=== PATIENT | female | born 2000 | race Caucasian/White ===

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

== ENCOUNTER 2022-03-25 01:23 | Emergency (ER) | payer BC ==
[2022-03-25 01:39] VITALS: RESP 16
[2022-03-25] MEDS ORDERED: LIDOCAINE 1% INJ 10MG/ML (5 ML VIAL-PF) SQ STA (05:18)
[2022-03-25] MEDS ORDERED: IBUPROFEN 600 MG TAB PO STA (05:18)
[2022-03-25] MEDS ORDERED: HYDROcodone/APAP 5-325MG 1 EACH TAB PO STA (05:18)
[2022-03-25] MEDS ORDERED: ACET/COD 300 MG/30 MG STARTER PACK 6 TAB BTL PO STA (07:23)
--- NOTE | 2022-03-25 07:23 | ED ---
Skin/Abscess/FB HPI - General Chief complaint: Skin/Abscess/Foreign Body Stated complaint: RT arm infection Time Seen by Provider: 03/25/22 04:18 Source: patient Mode of arrival: ambulatory Limitations: no limitations - History of Present Illness Initial comments: Patient is 21-year-old woman presenting with complaint of right axillary abscess. She has history of previous MRSA infection. She did require having an abscess drained previously. Patient began having swelling and tenderness few days ago and then was started on clindamycin by her primary physician but is not having any improvement and believes that the swelling has increased and there is more pain. She has not had systemic symptoms, no fever or chills, chest pain, tachycardia or dyspnea. MD complaint: abscess/boil -: days(s) Tetanus Up to Date: yes Location: RUE Consistency: constant Improves with: none Worsens with: none Context: none Associated symptoms: denies other symptoms Treatments Prior to Arrival: none - Related Data Previous Rx's Medication Instructions Recorded Dicyclomine [Bentyl] 20 mg PO DAILY #30 tablet 01/13/21 Allergies Allergy/AdvReac Type Severity Reaction Status Date / Time Milk Containing Products Allergy Severe Throat Verified 03/25/22 01:34 [Dairy] swelling, nausea citric acid [From Clenpiq] AdvReac Unknown Verified 03/25/22 01:34 magnesium oxide AdvReac Unknown Verified 03/25/22 01:34 [From Clenpiq] sodium picosulfate AdvReac Unknown Verified 01/17/21 06:57 [From Clenpiq] Review of Systems ROS Statement: Those systems with pertinent positive or pertinent negative responses have been documented in the HPI. ROS Other: All systems not noted in ROS Statement are negative. 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 as an Past Anesthesia/Blood Transfusion Reactions: No Reported Reaction Past Psychological History: No Psychological Hx Reported Smoking Status: Never smoker Past Alcohol Use History: Rare Past Drug Use History: None Reported - Past Family History Sister(s) Family Medical History: Vascular Disorder Additional Family Medical History / Comment(s): connective tissue and vascular malformations Father Family Medical History: Hypertension Mother Additional Family Medical History / Comment(s): left knee ligament issues General Exam Limitations: no limitations General appearance: alert, in no apparent distress Head exam: Present: atraumatic, normocephalic Neck exam: Present: normal inspection Respiratory exam: Present: normal lung sounds bilaterally. Absent: respiratory distress, wheezes, rales, rhonchi, stridor Cardiovascular Exam: Present: regular rate, normal rhythm, normal heart sounds. Absent: systolic murmur, diastolic murmur, rubs, gallop GI/Abdominal exam: Present: soft. Absent: distended, tenderness, guarding, rebound Skin exam: Present: warm, dry, intact, normal color, other (Abscess right axilla approximately 4 cm diameter with mild overlying cellulitis.). Absent: rash Course Vital Signs 03/25/22 03/25/22 01:34 07:35 Temperature 98.2 F 97.8 F Pulse Rate 67 60 Respiratory 16 16 Rate Blood Pressure 116/79 106/58 O2 Sat by Pulse 99 97 Oximetry Procedures - Incision & Drainage Consent Obtained: written consent Site: other (Right axilla) Anesthetic Used: lidocaine 1% I&D Cleaning Method: Alcohol Wipe Sterile Field Used?: Yes Scalpel Used: #11 Needle Aspiration Performed?: Yes I&D Drainage Obtained: Pus Packing: Iodoform Culture Obtained?: No Complications: pain Patient Tolerated Procedure: well, no complications Disposition Clinical Impression: Abscess Disposition: HOME SELF-CARE Condition: Good Instructions (If sedation given, give patient instructions): Abscess Incision and Drainage (ED), Abscess (ED) Is patient prescribed a controlled substance at d/c from ED?: No Referrals: Angie Wells MD [Primary Care Provider] - 1-2 days
[2022-03-25 07:37] VITALS: BP 106/58; PULSE 60; TEMP 97.8
== END 2022-03-25 07:37 | disposition home or self-care (01) ==
LOC: EC 01:23
DX: L02.411 Cutaneous abscess of right axilla (principal); J45.909 Unspecified asthma, uncomplicated; Z91.011 Allergy to milk products; Z91.018 Allergy to other foods; Z88.8 Allergy status to other drugs, medicaments and biological substances
CPT/HCPCS: 99282; 10060; J2001

== ENCOUNTER 2022-03-26 18:47 | Inpatient (IN) | payer BC ==
[2022-03-26] MEDS ORDERED: MORPHINE SULFATE 2 MG/ML SYRINGE IVP STA ×2 (20:50→21:29)
[2022-03-26] MEDS ORDERED: VANCOMYCIN IV PER PHARMACY 1 EACH MISC MISCELLANE PRN (21:23)
[2022-03-26] MEDS ORDERED: ONDANSETRON 4 MG/2 ML VIAL IVP STA (21:29)
[2022-03-26] MEDS ORDERED: NALOXONE 0.4 MG/ML 1 ML VIAL IV PRN (21:29)
[2022-03-26] MEDS ORDERED: ACETAMINOPHEN TAB 325 MG TAB PO PRN (21:29)
[2022-03-26] MEDS ORDERED: ALPRAZolam 0.25 MG TAB PO PRN (21:29)
[2022-03-26] MEDS ORDERED: VANCOMYCIN 1,500 MG in SODIUM CHLORIDE 0.9% 250 ML IVPB ONE (21:45)
[2022-03-26] MEDS: MIRTAZAPINE 15 MG TAB PO SCH (22:15)
[2022-03-26] MEDS: SODIUM CHLORIDE 0.9% 1,000 ML IV SCH (22:15)
--- NOTE | 2022-03-26 22:39 | P.HPIM ---
History of Present Illness H&P Date: 03/26/22 Chief Complaint: right axillary abscess 21-year-old female with depression Patient comes in due to worsening pain in her right axillary region extending all the way to the mid back over latissimus dorsi muscle distribution, pain is severe sharp 10 out of 10 in severity worse with movement she also feels burning sensation inside the abscess region over her axilla. Denies any fevers or chills denies any trouble breathing or chest pain denies any similar episodes in the past however she does report recurrent episodes of deep infections and abscess formation since she was around 10 years old started with she recalls deep hip infection , followed by pilonidal cyst in 2018 and recently had a left finger abscess, and now presenting since Saturday with an abscess formation over her right axillary region she presented to the ED a few days ago where it was I and D and started on clindamycin however she is returning today after consultation with infectious disease specialist who recommended admission for IV antibiotics. She otherwise denies any injuries to the area but does report recurrent episodes of ingrown hair in her groin area. Review of Systems Pertinent positives as noted in HPI. 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 Past Anesthesia/Blood Transfusion Reactions: No Reported Reaction Past Psychological History: No Psychological Hx Reported Smoking Status: Never smoker Past Alcohol Use History: Rare Past Drug Use History: None Reported - Past Family History Sister(s) Family Medical History: Vascular Disorder Additional Family Medical History / Comment(s): connective tissue and vascular malformations Father Family Medical History: Hypertension Mother Additional Family Medical History / Comment(s): left knee ligament issues Medications and Allergies Home Medications Medication Instructions Recorded Confirmed Type Acetaminophen-Codeine 300-30mg 1 tab PO TID PRN 03/26/22 03/26/22 History [Tylenol w/codeine #3] Cetirizine HCl 10 mg PO DAILY PRN 03/26/22 03/26/22 History FLUoxetine HCL [PROzac] See Taper PO DIRECTED 03/26/22 03/26/22 History Fluticasone Propionate 220 Mcg 1 puff INHALATION RT-BID PRN 03/26/22 03/26/22 History [Flovent 220 Mcg Inhaler] Levonorgestrel/Ethin.Estradiol 1 tab PO DAILY 03/26/22 03/26/22 History 0.15-0.03 Linaclotide [Linzess] 145 mcg PO DAILY 03/26/22 03/26/22 History Mirtazapine 30 mg PO HS 03/26/22 03/26/22 History clindamycin HCL [Cleocin] 300 mg PO BID 03/26/22 03/26/22 History Allergies Allergy/AdvReac Type Severity Reaction Status Date / Time Milk Containing Products Allergy Severe Throat Verified 03/26/22 21:10 [Dairy] swelling, nausea citric acid [From Clenpiq] AdvReac Unknown Verified 03/26/22 21:10 magnesium oxide AdvReac Unknown Verified 03/26/22 21:10 [From Clenpiq] sodium picosulfate AdvReac Unknown Verified 03/26/22 21:10 [From Clenpiq] Physical Exam Vitals: Vital Signs Temp Pulse Resp BP Pulse Ox 03/26/22 20:06 98.5 F 83 18 150/67 97 03/26/22 20:00 98.5 F 83 18 150/67 97 Intake and Output 03/26/22 03/26/22 03/26/22 06:59 14:59 22:59 Other: Weight 79 kg Constitutional: Patient reports a lot of pain in her right axillary region otherwise cooperative, conversant, pleasant, mother at bedside Eyes: Anicteric sclerae, moist conjunctiva, Pupils equal round reactive to light ENMT: NC/AT Oropharynx clear, no erythema, or exudates Neck: Supple, no masses, or JVD No carotid bruits No thyromegaly Lungs: Clear to auscultation Clear to percussion Normal respiratory effort, no accessory muscle use Cardiovascular: Heart regular in rate and rhythm, No murmurs, gallops, or rubs No peripheral edema Abdominal: Soft Nontender, no guarding, rebound or rigidity Abdomen moving with respiration Normoactive bowel sounds No hepatomegaly, No splenomegaly No palpable mass No abdominal wall hernia noted Skin: Drained abscess right axilla with surgical packing. Tenderness to palpation over the surrounding area (extending all the way to the mid back over the latissimus dorsi muscle distribution) no observed erythema or induration no warmth to the touch no crepitation Otherwise Normal temperature, tone, texture, turgor No induration No subcutaneous nodules No rash, lesions No ulcers Extremities: No digital cyanosis No clubbing Pedal pulses intact and symmetrical Radial pulses intact and symmetrical No calf tenderness Psychiatric: Alert and oriented to person, place and time Appropriate affect fair judgement Neuro Muscles Strength 5/5 in all 4 extremities except for limited exam over the right upper extremity proximal muscle group due to pain from right axillary abscess Sensation to light touch grossly present throughout Cranial nerves II-XII grossly intact No focal sensory deficits Lymphatics: no palpable cervical or supraclavicular , or inguinal lymph nodes Patient given 2 mg of morphine IV push, dressing removed area cleaned and sterilized wound was draining, cultures obtained wound was packed with 4 x 4 gauze patient given another 2 mg IV push of morphine for comfort due to severe pain Thrombosis Risk Factor Assmnt - Choose All That Apply Any of the Below Risk Factors Present?: No Other Risk Factors: No Other congenital or acquired thrombophilia - If yes, enter type in comment: No Thrombosis Risk Factor Assessment Level: Very Low Risk Assessment and Plan Assessment: Right axillary abscess failed outpatient therapy Follow-up blood culture Follow-up wound culture History of MRSA Initiate vancomycin dosing by pharmacy Pain control with morphine 4 mg IV push when necessary Zofran for nausea vomiting IV fluid hydration with normal saline 1 L bolus then maintenance at 1 30 mL/h Follow-up lactic acid, CBC, BMP Surgery and ID consultation Nothing by mouth after midnight Chronic conditions Depression Continue with home medications DVT prophylaxis heparin subcu 3 times a day Full code Anticipated length stay less than 2 midnights
[2022-03-26] MEDS: HEPARIN SODIUM,PORCINE/PF 5,000 UNIT/0.5 ML SYRINGE SQ SCH (23:13)
[2022-03-26 23:30] LABS: Basophils % (A) 1 %; Eosinophils # (A) 0.2 k/uL (0-0.7); Eosinophils % (A) 5 %; HCT 39.3 % (34.0-46.0); HGB 13.5 gm/dL (11.4-16.0); Lymphocytes # (A) 2.1 k/uL (1.0-4.8); Lymphocytes % (A) 43 %; MCH 31.7 pg (25.0-35.0); MCHC 34.5 g/dL (31.0-37.0); MCV 91.9 fL (80.0-100.0); Mean Platelet Volume 7.5; Monocytes # (A) 0.2 k/uL (0-1.0); Monocytes % (A) 5 %; Neutrophils # (A) 2.2 k/uL (1.3-7.7); Neutrophils % (A) 46 %; Platelet Count 428 k/uL (150-450); RBC 4.27 m/uL (3.80-5.40); RDW 12.2 % (11.5-15.5); WBC 4.9 k/uL (4.0-11.0)
[2022-03-26 23:33] LABS: ALT 18 U/L (4-34); AST 28 U/L (14-36); African American GFR (CKD) >90 (>60 ml/min/1.73 sqM); Albumin 4.2 g/dL (3.5-5.0); Albumin/Globulin Ratio 1.7; Alkaline Phosphatase 77 U/L (38-126); Anion Gap 10 mmol/L; Blood Urea Nitrogen 14 mg/dL (7-17); Calcium 9.1 mg/dL (8.4-10.2); Carbon Dioxide 25 mmol/L (22-30); Chloride 103 mmol/L (98-107); Globulin 2.5 g/dL; Glucose 103 mg/dL (74-99); Non-African American GFR(CKD) >90 (>60 ml/min/1.73 sqM); Potassium 3.9 mmol/L (3.5-5.1); Sodium 138 mmol/L (137-145); Total Bilirubin 0.3 mg/dL (0.2-1.3); Total Protein 6.7 g/dL (6.3-8.2)
--- NOTE | 2022-03-27 | CT ---
EXAMINATION TYPE: CT shoulder RT w con DATE OF EXAM: 03/26/2022 COMPARISON: None HISTORY: R axillary abscess, eval R shoulder and mid back CT DLP: 433.2 mGycm Automated exposure control for dose reduction was used. CONTRAST: Performed with IV Contrast, patient injected with 100ml mL of Isovue 300. Images obtained from the top of the shoulder joint to the right diaphragm with IV contrast. There is normal contrast opacification of the right axillary artery and subclavian artery. The should er joint is intact. There is a 3.5 cm complex mass in the axilla in the subcutaneous fat. This contai ns an air bubble and consistent with an abscess. There is some mild adjacent fat stranding. The visua lized right breast appears intact. Pectoralis muscle is intact. Muscles of the right shoulder appear intact. IMPRESSION: Subcutaneous mass in the right axilla consistent with an abscess is localized to the subcutaneous tis sues. No evidence of any muscle or bone involvement.
[2022-03-27] MEDS: HEPARIN SODIUM,PORCINE/PF 5,000 UNIT/0.5 ML SYRINGE SQ SCH ×3 (08:10→23:17)
--- NOTE | 2022-03-27 08:25 | P.CONS ---
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 There was an evidence of some significant swelling, some redness and increasing discomfort. She was seen by her primary care physician, Dr. Patel, and was placed on oral clindamycin. Despite the oral antibiotic therapy the pain increased greatly the area of swelling became about the size of a golf ball it was fluctuant with surrounding erythema and sitting discomfort because when she presented to the emergency room. At that time she did not have significant fever, chills, or rigors. Emergency room physician did perform a bedside incision and drainage to the abscess area right axilla and it was packed. Clindamycin was continued. However and the following 12 hours the site worsened, increasing drainage, increasing pain with radiation of the pain from the site through the axillary area in a burning type fashion. Consequently she presented back to hospital and was admitted and at this present time there are plans for surgical consultation for possible surgical incision and drainage. He control fortunately is doing well this time. It is of some interest that she has had an MRSA infection of her right hand when she was in [place] within the last year. She also had a significant popliteal cyst infection now about 2 years ago that did require an intervention. She has a known history of irritable bowel disease with constipation and apparently and lens system quite well. She has had colonoscopies evidence of any abnormalities. 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 Review of Systems HEENT:Denies headache or acute visual change. Denies sinus or mouth discomforts. Denies neck stiffness or pain. Denies significant oral cavity pain. Denies difficulty on swallowing. Lungs: Denies significant shortness of breath, over to the spring she has de veloped a cough and does have some ongoing sputum production it is tannish in color without hemoptysis, she is been on cetirizine with some improvement childhood asthma without ongoing difficulties Cardiovascular: Denies significant shortness of breath, chest pain, chest wall pain, orthopnea, dyspnea on exertion, syncope she recently had an episode of what appears to be SVT and is being followed by cardiology and believe a outpatient Holter monitor has been requested however acute axillary infection has put that on hold for the moment Gastrointestinal:Denies nausea, vomiting, diarrhea, constipation is now well- controlled [place] S, hematemesis, melena, hematochezia. No no significant c hange of bowel habit noticed. Musculoskeletal: denies significant myalgias or arthralgias. No new joint swelling. Denies new back pain. Skin: As noted has a history of the prior skin infection, pulmonary of systems all the right axillary infection Neuro: Denies headache or visual change. Denies any new onset weakness or difficulty with ambulation. Denies falls or seizures. 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 Colonoscopy 2 years ago Past Anesthesia/Blood Transfusion Reactions: No Reported Reaction Past Psychological History: No Psychological Hx Reported Additional Psychological History / Comment(s): She is single, attends [employer] state will be moving into an apartment had been in the dorm this . She is a tobacco user, denies drug use, does not have current sexual partner. There is no international travel. There are no animal exposures. She has not done outdooe events such as camping Smoking Status: Never smoker Past Alcohol Use History: Rare Past Drug Use History: None Reported - Past Family History Sister(s) Family Medical History: Vascular Disorder Additional Family Medical History / Comment(s): connective tissue and vascular malformations Father Family Medical History: Hypertension Mother Additional Family Medical History / Comment(s): left knee ligament issues Medications and Allergies Home Medications Medication Instructions Recorded Confirmed Type Acetaminophen-Codeine 300-30mg 1 tab PO TID PRN 03/26/22 03/26/22 History [Tylenol w/codeine #3] Cetirizine HCl 10 mg PO DAILY PRN 03/26/22 03/26/22 History FLUoxetine HCL [PROzac] See Taper PO DIRECTED 03/26/22 03/26/22 History Fluticasone Propionate 220 Mcg 1 puff INHALATION RT-BID PRN 03/26/22 03/26/22 History [Flovent 220 Mcg Inhaler] Levonorgestrel/Ethin.Estradiol 1 tab PO DAILY 03/26/22 03/26/22 History 0.15-0.03 Linaclotide [Linzess] 145 mcg PO DAILY 03/26/22 03/26/22 History Mirtazapine 30 mg PO HS 03/26/22 03/26/22 History clindamycin HCL [Cleocin] 300 mg PO BID 03/26/22 03/26/22 History Allergies Allergy/AdvReac Type Severity Reaction Status Date / Time Milk Containing Products Allergy Severe Throat Verified 03/26/22 21:10 [Dairy] swelling, nausea citric acid [From Clenpiq] AdvReac Unknown Verified 03/26/22 21:10 magnesium oxide AdvReac Unknown Verified 03/26/22 21:10 [From Clenpiq] sodium picosulfate AdvReac Unknown Verified 03/26/22 21:10 [From Clenpiq] Physical Exam Vitals: Vital Signs Temp Pulse Resp BP Pulse Ox 03/27/22 05:00 97.1 F L 82 18 114/75 97 03/26/22 21:00 83 18 03/26/22 20:06 98.5 F 83 18 150/67 97 03/26/22 20:00 98.5 F 83 18 150/67 97 Intake and Output 03/26/22 03/27/22 03/27/22 22:59 06:59 14:59 Intake Total 1030 Balance 1030 Intake: Intake, IV Titration 1030 Amount Sodium Chloride 0.9% 1, 780 000 ml @ 130 mls/hr IV . Q7H42M [facility] Rx#:[id number] Vancomycin 1,500 mg In 250 Sodium Chloride 0.9% 250 ml @ 125 mls/hr IVPB Q12H [facility] Rx#:[id number] Oral 0 Other: Voiding Method Toilet # Voids 2 Weight 79 kg HEENT: Anicteric conjunctiva are pink and moist nasal mucosa grossly intact without significant lesions, there is no thrush. Neck: The neck is supple without significant lymphadenopathy or thyromegaly. Lungs: Good bilateral air entry without significant crackles or wheezing. There is no significant bronchial sounds. There is no egophony or dullness. Heart: Regular rate and rhythm with an audible S1-S2, no S3 no S4. There is no significant murmur click or rub, PMI was nondisplaced. Abdomen: Positive bowel sounds soft and nontender without palpable masses or organomegaly. There was no guarding or rebound. Extremities: The upper extremities have excellent pulses they are symmetric, no significant petechiae or telangiectasia. No splinter hemorrhages were noted. The lower extremities are free from significant edema. The peripheral pulses were 2+ and symmetric. Neuro: Awake alert oriented to person place and time. There are no acute new gross focal sensory motor deficits. Skin: Reveals evidence of the draining wound of the right axillary area that is currently packed, there is bloody purulent drainage on the dressing. Distinct tenderness in the surrounding tissue with some mild erythema. The site is not fluctuant. The left axillary area is without abnormality. No lymphadenopathy is noted. Results CBC & Chem 7: 03/26/22 22:49 03/26/22 22:49 Labs: Abnormal Lab Results - Last 24 Hours (Table) 03/26/22 Range/Units 22:49 Glucose 103 H (74-99) mg/dL Microbiology - Last 24 Hours (Table) 03/26/22 21:20 Gram Stain - Preliminary Axilla - Right Wound Culture - Preliminary Assessment and Plan (1) Axillary abscess Narrative/Plan: 21-year-old female who has a history of IBS C, depression and prior MRSA infection of her hand presents with a significant abscess to the right axillary area. She did have an incision and drainage performed in the emergency center is having ongoing difficulties at that site. Culture has now been obtained. Vancomycin therapy was recommended. Surgery will come by to see her to determine if she needs a more formal incision and drainage to that area. Pain control is excellent with the morphine sulfate and Tylenol that she has been given. Etiology of some recurrent difficulties remains concern at this point time given her youth. Routine workup will initiate this point in time HIV testing, CD4 cell count, and IgG levels will be obtained to further evaluate immune status at this time. She presented to be up-to-date with her vaccines Wound care will be further delineated once surgery has seen her in a week and have her follow-up in the wound healing center at her discharge. Current Visit: Yes Status: Acute Code(s): L02.419 - CUTANEOUS ABSCESS OF LIMB, UNSPECIFIED SNOMED Code(s): 44772516 (2) IBS (irritable bowel syndrome) Current Visit: Yes Status: Acute Code(s): K58.9 - IRRITABLE BOWEL SYNDROME WITHOUT DIARRHEA SNOMED Code(s): 03196730 (3) Irritable bowel syndrome with predominant constipation Current Visit: Yes Status: Acute Code(s): K58.1 - IRRITABLE BOWEL SYNDROME WITH CONSTIPATION SNOMED Code(s): 418402679 (4) MRSA (methicillin resistant Staphylococcus aureus) Current Visit: Yes Status: Acute Code(s): A49.02 - METHICILLIN RESIS STAPH INFECTION, UNSP SITE SNOMED Code(s): 246661792
[2022-03-27] MEDS: SODIUM CHLORIDE 0.9% 1,000 ML IV SCH ×3 (08:40→21:31)
[2022-03-27] MEDS: PATIENT'S OWN (Linaclotide [Linzess] 145 MCG Capsule) PO SCH (08:41)
[2022-03-27] MEDS ORDERED: FLUoxetine HCL 20 MG CAP PO ONE (09:00)
[2022-03-27] MEDS ORDERED: VANCOMYCIN 1,500 MG in SODIUM CHLORIDE 0.9% 250 ML IVPB SCH (11:00)
[2022-03-27 11:13] LABS: Basophils # (A) 0.03 X 10*3/uL (0.00-0.10); Basophils % (A) 0.5 %; HCT 37.5 % (37.2-46.3); HGB 12.3 g/dL (12.0-15.0); Immature Grans, Automated 0.2 %; Lymphocytes # (A) 2.33 X 10*3/uL (0.90-5.00); Lymphocytes % (A) 38.7 %; MCH 29.9 pg (27.0-32.0); MCHC 32.8 g/dL (32.0-37.0); Monocytes # (A) 0.42 X 10*3/uL (0.20-1.00); NRBC Per 100 WBC 0 /100 WBCS (0.0-0.0); Neutrophils # (A) 2.93 X 10*3/uL (1.80-7.70); Neutrophils % (A) 48.6 %; Platelet Count 387 X 10*3/uL (140-440); RBC 4.12 X 10*6/uL (4.10-5.20); RDW 11.4 % (11.5-14.5); WBC 6.02 X 10*3/uL (4.50-10.00)
[2022-03-27 11:19] LABS: African American GFR (CKD) 153.1 (60.0-200.0); Anion Gap 11.8 mmol/L (10.00-18.00); BUN/Creat Ratio 16.33 Ratio (12.00-20.00); Blood Urea Nitrogen 9.8 mg/dL (9.0-27.0); Calcium 8.9 mg/dL (8.7-10.3); Carbon Dioxide 20.2 mmol/L (20.0-27.5); Non-African American GFR(CKD) 132.1 (60.0-200.0)
--- NOTE | 2022-03-27 13:54 | P.GSCN ---
History of Present Illness Consult date: 03/27/22 History of present illness: 21-year-old female is admitted to the hospital secondary to failed outpatient therapy for axillary abscess. She states that approximately 3 or 4 days ago she began having some pain in the right axillary area. There was redness and a burning sensation in the area. She was started on oral antibiotic and states that she continued to have increase in pain. When she presented to the emergency department, the area was notably fluctuant and bedside I&D was performed and the area was packed. She was discharged from the ER and states that with worsening of the area she once again presented. He denies any fevers, chills, chest pain or shortness of breath. She is complaining of significant pain at the area. There is continued drainage from the previous I&D site, however the I&D site is notably mostly closed at this point. 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 Colonoscopy 2 years ago Past Anesthesia/Blood Transfusion Reactions: No Reported Reaction Past Psychological History: No Psychological Hx Reported Additional Psychological History / Comment(s): She is single, attends [employer] state will be moving into an apartment had been in the dorm this . She is a tobacco user, denies drug use, does not have current sexual partner. There is no international travel. There are no animal exposures. She has not done outdooe events such as camping Smoking Status: Never smoker Past Alcohol Use History: Rare Past Drug Use History: None Reported - Past Family History Sister(s) Family Medical History: Vascular Disorder Additional Family Medical History / Comment(s): connective tissue and vascular malformations Father Family Medical History: Hypertension Mother Additional Family Medical History / Comment(s): left knee ligament issues Medications and Allergies Home Medications Medication Instructions Recorded Confirmed Type Acetaminophen-Codeine 300-30mg 1 tab PO TID PRN 03/26/22 03/26/22 History [Tylenol w/codeine #3] Cetirizine HCl 10 mg PO DAILY PRN 03/26/22 03/26/22 History FLUoxetine HCL [PROzac] See Taper PO DIRECTED 03/26/22 03/26/22 History Fluticasone Propionate 220 Mcg 1 puff INHALATION RT-BID PRN 03/26/22 03/26/22 History [Flovent 220 Mcg Inhaler] Levonorgestrel/Ethin.Estradiol 1 tab PO DAILY 03/26/22 03/26/22 History 0.15-0.03 Linaclotide [Linzess] 145 mcg PO DAILY 03/26/22 03/26/22 History Mirtazapine 30 mg PO HS 03/26/22 03/26/22 History clindamycin HCL [Cleocin] 300 mg PO BID 03/26/22 03/26/22 History Allergies Allergy/AdvReac Type Severity Reaction Status Date / Time Milk Containing Products Allergy Severe Throat Verified 03/26/22 21:10 [Dairy] swelling, nausea citric acid [From Clenpiq] AdvReac Unknown Verified 03/26/22 21:10 magnesium oxide AdvReac Unknown Verified 03/26/22 21:10 [From Clenpiq] sodium picosulfate AdvReac Unknown Verified 03/26/22 21:10 [From Clenpiq] Surgical - Exam Osteopathic Statement: *. No significant issues noted on an osteopathic structural exam other than those noted in the History and Physical/Consult. Vital Signs Temp Pulse Resp BP Pulse Ox 98.5 F 83 18 150/67 97 03/26/22 20:00 03/26/22 20:00 03/26/22 20:00 03/26/22 20:00 03/26/22 20:00 - General well nourished, no distress - Eyes normal ocular movement - ENT no hearing loss - Neck trachea midline - Respiratory normal respiratory effort - Abdomen Abdomen: soft, non tender - Integumentary Right axillary area with previous I&D site noted to be in the healing process with mild opening still present, surrounding induration palpable, no obvious fluctuation, some purulent drainage noted on the dressing that is in place - Psychiatric oriented to time, oriented to person, oriented to place Results - Labs 03/27/22 06:53 03/27/22 06:53 Abnormal Lab Results - Last 24 Hours (Table) 03/26/22 03/27/22 Range/Units 22:49 06:53 RDW 11.4 L (11.5-14.5) % Glucose 103 H (74-99) mg/dL Microbiology - Last 24 Hours (Table) 03/26/22 21:20 Gram Stain - Preliminary Axilla - Right Wound Culture - Preliminary Diabetes panel 03/26/22 03/27/22 Range/Units 22:49 06:53 Sodium 138 138 (137-145) mmol/L Potassium 3.9 4.0 (3.5-5.1) mmol/L Chloride 103 106 (98-107) mmol/L Carbon Dioxide 25 20.2 (22-30) mmol/L BUN 14 9.8 (7-17) mg/dL Creatinine 0.81 0.6 (0.52-1.04) mg/dL Glucose 103 H 91 (74-99) mg/dL Calcium 9.1 8.9 (8.4-10.2) mg/dL AST 28 (14-36) U/L ALT 18 (4-34) U/L Alkaline Phosphatase 77 (38-126) U/L Total Protein 6.7 (6.3-8.2) g/dL Albumin 4.2 (3.5-5.0) g/dL Calcium panel 03/26/22 03/27/22 Range/Units 22:49 06:53 Calcium 9.1 8.9 (8.4-10.2) mg/dL Albumin 4.2 (3.5-5.0) g/dL Pituitary panel 03/26/22 03/27/22 Range/Units 22:49 06:53 Sodium 138 138 (137-145) mmol/L Potassium 3.9 4.0 (3.5-5.1) mmol/L Chloride 103 106 (98-107) mmol/L Carbon Dioxide 25 20.2 (22-30) mmol/L BUN 14 9.8 (7-17) mg/dL Creatinine 0.81 0.6 (0.52-1.04) mg/dL Glucose 103 H 91 (74-99) mg/dL Calcium 9.1 8.9 (8.4-10.2) mg/dL Adrenal panel 03/26/22 03/27/22 Range/Units 22:49 06:53 Sodium 138 138 (137-145) mmol/L Potassium 3.9 4.0 (3.5-5.1) mmol/L Chloride 103 106 (98-107) mmol/L Carbon Dioxide 25 20.2 (22-30) mmol/L BUN 14 9.8 (7-17) mg/dL Creatinine 0.81 0.6 (0.52-1.04) mg/dL Glucose 103 H 91 (74-99) mg/dL Calcium 9.1 8.9 (8.4-10.2) mg/dL Total Bilirubin 0.3 (0.2-1.3) mg/dL AST 28 (14-36) U/L ALT 18 (4-34) U/L Alkaline Phosphatase 77 (38-126) U/L Total Protein 6.7 (6.3-8.2) g/dL Albumin 4.2 (3.5-5.0) g/dL Assessment and Plan Plan: 21-year-old female with failed outpatient therapy for abscess of the axilla. I had a long discussion with the patient and the patient's mother at bedside. Based on continued increase in pain and continued active drainage with a healing incision site, we will plan for further incision and drainage in the OR. Patient is requesting to receive some sedation during this procedure. We will be able to break any loculations during this procedure and we've a wider opening to allow continued drainage from this site. Patient has been nothing by mouth. We will set the patient of her procedure today and further recommendations to follow.
--- NOTE | 2022-03-27 14:41 | P.PN ---
Subjective Progress Note Date: 03/27/22 Patient's pain is well-controlled with medication. She continues to have drainage from the axillary site but also has increased pain. Surgery consult recommends incision and drainage with wider excision. Gen: awake, alert HEENT: normocephalic, atraumatic, good hearing acuity, moist mucous membranes Resp: good air exchange, breathing comfortably with no accessory muscle use CVS: good distal perfusion x 4, GI: soft, NTTP, ND : no SPT, no CVAT, hernandez catheter not present MSK: no pitting edema, no clubbing Neuro: non-focal, moving all extremities Psych: cooperative, euthymic mood Assessment/plan: Right axillary abscess failed outpatient therapy Follow-up blood culture Follow-up wound culture History of MRSA Initiate vancomycin dosing by pharmacy Pain control with morphine 4 mg IV push when necessary Zofran for nausea vomiting IV fluid hydration with normal saline 1 L bolus then maintenance at 1 30 mL/h Follow-up lactic acid, CBC, BMP Surgery and ID consultation Nothing by mouth after midnight Chronic conditions Depression Continue with home medications DVT prophylaxis heparin subcu 3 times a day Full code Anticipated length stay less than 2 midnights Objective - Vital Signs Vital signs: Vital Signs Temp 97.9 F 03/27/22 12:44 Pulse 67 03/27/22 12:44 Resp 16 03/27/22 12:44 BP 106/73 03/27/22 12:44 Pulse Ox 96 03/27/22 12:44 FiO2 Intake & Output 03/26/22 03/27/22 03/27/22 18:59 06:59 18:59 Intake Total 1030 Balance 1030 Weight 79 kg Intake: Intake, IV Titration 1030 Amount Sodium Chloride 0.9% 1, 780 000 ml @ 130 mls/hr IV . Q7H42M [facility] Rx#:[id number] Vancomycin 1,500 mg In 250 Sodium Chloride 0.9% 250 ml @ 125 mls/hr IVPB Q12H [facility] Rx#:[id number] Oral 0 Other: Voiding Method Toilet Toilet # Voids 2 1 - Labs CBC & Chem 7: 03/27/22 06:53 03/27/22 06:53 Labs: Abnormal Lab Results - Last 24 Hours (Table) 03/26/22 03/27/22 Range/Units 22:49 06:53 RDW 11.4 L (11.5-14.5) % Glucose 103 H (74-99) mg/dL Microbiology - Last 24 Hours (Table) 03/26/22 21:20 Gram Stain - Preliminary Axilla - Right Wound Culture - Preliminary
[2022-03-27 15:55] LABS: Immunoglobulin A 32.1 mg/dL (60.0-350.0)
[2022-03-27] MEDS ORDERED: LACTATED RINGERS 1,000 ML IV ONE (16:17)
[2022-03-27] MEDS: ONDANSETRON 4 MG/2 ML VIAL IVP PRN (16:27)
[2022-03-27] MEDS ORDERED: MIDAZOLAM 2 MG/2 ML VIAL ONE (16:51)
[2022-03-27] MEDS ORDERED: PROPOFOL 10 MG/ML 20 ML VIAL IV ONE (16:51)
[2022-03-27] MEDS ORDERED: LIDOCAINE 2% INJ 20 MG/ML (2 ML VIAL) ONE (16:51)
[2022-03-27] MEDS ORDERED: fentaNYL (PF) 50 MCG/ML 2 ML AMP ONE (16:51)
[2022-03-27 17:03] LABS: HIV 2 AB Non-Reactive (Non-Reactive); HIV AB P24 Non-Reactive (Non-Reactive); HIV P24 AG Non-Reactive (Non-Reactive)
[2022-03-27] MEDS ORDERED: BUPIVACAIN-EPI 0.25%-1:200,000 30 ML VIAL SQ ONE (17:13)
--- NOTE | 2022-03-27 17:24 | P.OP ---
Date of Procedure: 03/27/22 Preoperative Diagnosis: Right axillary abscess Postoperative Diagnosis: Right axillary abscess Procedure(s) Performed: Right axillary abscess incision and drainage Anesthesia: FAN Surgeon: Bree Garvin Pathology: other (Cultures of abscess) Condition: stable Disposition: floor Indications for Procedure: 21-year-old female presented to the emergency department with failed outpatient treatment of right axillary abscess. Plan is for incision and drainage for further evacuation of abscess contents. Risks, benefits and alternatives were provided. Operative Findings: Purulent drainage from abscess cavity Description of Procedure: Patient was brought to the operating suite and placed in supine position on the operating table. Sedation was provided by anesthesia and the patient had LMA placed. Her right axilla was then prepped and draped in regular sterile fashion. Incision was made over the previous incision and drainage site and was slightly extended. Immediate outpouring of further purulent material was noted. Hemostat was used to break further loculations and additional blood and pus was noted. Cultures were obtained. Abscess cavity was noted to extend approximately 2-3 cm in depth. Irrigation was then placed in the wound and cleared. Iodoform packing was placed and wound was covered with absorbent dressing. Patient was awakened in the operating suite and taken to postanesthesia care unit in stable condition.
[2022-03-27 18:05] LABS: Immunoglobulin E 7.57 IU/mL (0.00-114.00)
[2022-03-27] MEDS: MORPHINE SULFATE 4 MG/ML SYRINGE IVP PRN ×2 (18:44→22:38)
[2022-03-27] MEDS: VANCOMYCIN 1,500 MG in SODIUM CHLORIDE 0.9% 250 ML IVPB SCH (18:45)
[2022-03-27] MEDS: IBUPROFEN 400 MG TAB PO PRN (20:14)
[2022-03-27] MEDS: MIRTAZAPINE 15 MG TAB PO SCH (22:36)
[2022-03-28] MEDS: SODIUM CHLORIDE 0.9% 1,000 ML IV SCH ×3 (03:04→19:19)
[2022-03-28] MEDS: VANCOMYCIN 1,500 MG in SODIUM CHLORIDE 0.9% 250 ML IVPB SCH ×3 (03:04→19:19)
[2022-03-28] MEDS: MORPHINE SULFATE 4 MG/ML SYRINGE IVP PRN ×3 (03:05→21:28)
--- NOTE | 2022-03-28 08:10 | P.PN ---
Subjective Progress Note Date: 03/28/22 Principal diagnosis: MRSA axilla 21-year-old female who is now status post formal incision and drainage of the right axillary abscess. A large abscess cavity was encountered at the time of the surgical section of drainage, deep specimen has been sent to the laboratory. Patient other than having some pain the site is doing relatively well. Will be having her breakfast in a moment. She has no fevers chills rigors or sweats and no other new complaints. Continues to have some discomfort at the area of the prior pilonidal cyst. Objective - Vital Signs Vital signs: Vital Signs Temp 98.5 F 03/28/22 05:00 Pulse 72 03/28/22 05:00 Resp 16 03/28/22 05:00 BP 106/64 03/28/22 05:00 Pulse Ox 95 03/28/22 05:00 FiO2 Intake & Output 03/27/22 03/28/22 03/28/22 18:59 06:59 18:59 Intake Total 600 1550 Output Total 5 Balance 595 1550 Intake: IV 600 Intake, IV Titration 1550 Amount Sodium Chloride 0.9% 1, 1300 000 ml @ 130 mls/hr IV . Q7H42M [facility] Rx#:[id number] Vancomycin 1,500 mg In 250 Sodium Chloride 0.9% 250 ml @ 125 mls/hr IVPB Q8H [facility] Rx#:[id number] Output: Estimated Blood Loss 5 Other: Voiding Method Toilet Toilet # Voids 1 3 - Exam HEENT: Anicteric conjunctiva are pink and moist Lungs: Good bilateral air entry without significant crackles or wheezing. Heart: Regular rate and rhythm with an audible S1-S2, no S3 no S4. There is no significant murmur click or rub, PMI was nondisplaced. Abdomen: Positive bowel sounds soft and nontender without palpable masses or organomegaly. There was no guarding or rebound. Extremities: The upper extremities have excellent pulses they are symmetric, no significant petechiae or telangiectasia. No splinter hemorrhages were noted. The lower extremities are free from significant edema. The peripheral pulses were 2+ and symmetric. The axillary area dressing is not removed at this point in time awaiting for the surgeon to remove the first dressing from surgery Neuro: Awake alert oriented to person place and time. There are no acute new gross focal sensory motor deficits. - Labs CBC & Chem 7: 03/27/22 06:53 03/27/22 06:53 Labs: Abnormal Lab Results - Last 24 Hours (Table) 03/27/22 03/27/22 Range/Units 06:53 11:01 RDW 11.4 L (11.5-14.5) % IgG 465.0 L (700.0-1600.0) mg/dL IgA 32.1 L (60.0-350.0) mg/dL Microbiology - Last 24 Hours (Table) 03/26/22 22:48 Blood Culture - Preliminary Blood No Growth after 24 hours 03/27/22 17:18 Wound Culture - Preliminary Axilla - Right 03/27/22 17:18 Anaerobic Culture - Preliminary Axilla - Right 03/26/22 21:20 Gram Stain - Preliminary Axilla - Right Wound Culture - Preliminary Assessment and Plan (1) Axillary abscess Narrative/Plan: 03/28/2022 the patient is now status post incision and drainage of the large right expiratory abscess. She is doing well this morning postoperative period cultures this point in time are pending over the outpatient culture did show evidence of the prior MRSA that is trimethoprim sulfamethoxazole susceptible. Once cultures available to determine her best course for outpatient therapy which likely will be oral. May need to have a home care consult for packing of this abscess cavity in the home setting. We discussed some maneuvers to help her with MRSA infection that include optimization of her nutritional status with zinc, BEC vitamins. We discussed that she can then do some skin decolonization and maneuvers to improve razor hygiene can also be performed. 21-year-old female who has a history of IBS C, depression and prior MRSA infection of her hand presents with a significant abscess to the right axillary area. She did have an incision and drainage performed in the emergency center is having ongoing difficulties at that site. Culture has now been obtained. Vancomycin therapy was recommended. Surgery will come by to see her to determine if she needs a more formal incision and drainage to that area. Pain control is excellent with the morphine sulfate and Tylenol that she has been given. Etiology of some recurrent difficulties remains concern at this point time given her youth. Routine workup will initiate this point in time HIV testing, CD4 cell count, and IgG levels will be obtained to further evaluate immune status at this time. She presented to be up-to-date with her vaccines Wound care will be further delineated once surgery has seen her in a week and have her follow-up in the wound healing center at her discharge. Current Visit: Yes Status: Acute Code(s): L02.419 - CUTANEOUS ABSCESS OF LIMB, UNSPECIFIED SNOMED Code(s): 23536984 (2) IBS (irritable bowel syndrome) Current Visit: Yes Status: Acute Code(s): K58.9 - IRRITABLE BOWEL SYNDROME WITHOUT DIARRHEA SNOMED Code(s): 21356302 (3) Irritable bowel syndrome with predominant constipation Current Visit: Yes Status: Acute Code(s): K58.1 - IRRITABLE BOWEL SYNDROME WITH CONSTIPATION SNOMED Code(s): 869212667 (4) MRSA (methicillin resistant Staphylococcus aureus) Current Visit: Yes Status: Acute Code(s): A49.02 - METHICILLIN RESIS STAPH I NFECTION, UNSP SITE SNOMED Code(s): 962551685
[2022-03-28] MEDS: FLUoxetine HCL 20 MG CAP PO SCH ×2 (09:11→22:07)
[2022-03-28] MEDS: PATIENT'S OWN (Linaclotide [Linzess] 145 MCG Capsule) PO SCH (09:11)
[2022-03-28] MEDS: HEPARIN SODIUM,PORCINE/PF 5,000 UNIT/0.5 ML SYRINGE SQ SCH ×3 (09:12→23:16)
[2022-03-28] MEDS: IBUPROFEN 400 MG TAB PO PRN ×2 (09:23→16:55)
[2022-03-28 09:43] LABS: T4/T8 Ratio (CD4:CD8) 1.6 (1.0-3.7)
[2022-03-28] MEDS ORDERED: VANCOMYCIN TROUGH DUE 1 EACH MISC MISCELLANE ONE (10:00)
[2022-03-28 10:16] LABS: Basophils % (A) 1 %; Eosinophils # (A) 0.2 k/uL (0-0.7); Eosinophils % (A) 5 %; HCT 36.4 % (34.0-46.0); HGB 12.4 gm/dL (11.4-16.0); Lymphocytes % (A) 45 %; MCH 31.5 pg (25.0-35.0); MCHC 34.1 g/dL (31.0-37.0); MCV 92.3 fL (80.0-100.0); Mean Platelet Volume 7.3; Monocytes # (A) 0.2 k/uL (0-1.0); Monocytes % (A) 4 %; Neutrophils # (A) 1.9 k/uL (1.3-7.7); Neutrophils % (A) 43 %; Platelet Count 406 k/uL (150-450); RBC 3.95 m/uL (3.80-5.40); RDW 12.2 % (11.5-15.5); WBC 4.3 k/uL (4.0-11.0)
[2022-03-28 10:30] LABS: African American GFR (CKD) >90 (>60 ml/min/1.73 sqM); Anion Gap 7 mmol/L; Blood Urea Nitrogen 7 mg/dL (7-17); Calcium 8.5 mg/dL (8.4-10.2); Carbon Dioxide 23 mmol/L (22-30); Chloride 109 mmol/L (98-107); Glucose 110 mg/dL (74-99); Non-African American GFR(CKD) >90 (>60 ml/min/1.73 sqM); Potassium 3.8 mmol/L (3.5-5.1); Sodium 139 mmol/L (137-145)
--- NOTE | 2022-03-28 14:43 | P.PN ---
Subjective Progress Note Date: 03/28/22 Patient is postoperative day 1 drainage of abscess from the right axilla. Complaining of pain. Objective - Vital Signs Vital signs: Vital Signs Temp 97.5 F L 03/28/22 12:28 Pulse 62 03/28/22 12:28 Resp 16 03/28/22 12:28 BP 113/66 03/28/22 12:28 Pulse Ox 96 03/28/22 12:28 FiO2 Intake & Output 03/27/22 03/28/22 03/28/22 18:59 06:59 18:59 Intake Total 600 1550 420 Output Total 5 Balance 595 1550 420 Intake: IV 600 Intake, IV Titration 1550 Amount Sodium Chloride 0.9% 1, 1300 000 ml @ 130 mls/hr IV . Q7H42M [facility] Rx#:[id number] Vancomycin 1,500 mg In 250 Sodium Chloride 0.9% 250 ml @ 125 mls/hr IVPB Q8H [facility] Rx#:[id number] Oral 420 Output: Estimated Blood Loss 5 Other: Voiding Method Toilet Toilet Toilet # Voids 1 3 - Constitutional General appearance: Present: cooperative, no acute distress - Integumentary Integumentary Comment(s): The skin and subcutaneous tissue around the incision and drainage site are soft. There is some mucopurulent drainage on the gauze. Nursing is then to change the packing - Labs CBC & Chem 7: 03/28/22 09:43 03/28/22 09:43 Labs: Abnormal Lab Results - Last 24 Hours (Table) 03/27/22 03/28/22 Range/Units 11:01 09:43 Chloride 109 H (98-107) mmol/L Glucose 110 H (74-99) mg/dL IgG 465.0 L (700.0-1600.0) mg/dL IgA 32.1 L (60.0-350.0) mg/dL Microbiology - Last 24 Hours (Table) 03/26/22 21:20 Gram Stain - Preliminary Axilla - Right Wound Culture - Preliminary Presumptive MRSA 03/27/22 17:18 Gram Stain - Preliminary Axilla - Right Wound Culture - Preliminary 03/26/22 22:48 Blood Culture - Preliminary Blood No Growth after 24 hours 03/27/22 17:18 Anaerobic Culture - Preliminary Axilla - Right Assessment and Plan (1) Axillary abscess Current Visit: Yes Status: Acute Code(s): L02.419 - CUTANEOUS ABSCESS OF LIMB, UNSPECIFIED SNOMED Code(s): 80559255 (2) MRSA (methicillin resistant Staphylococcus aureus) Current Visit: Yes Status: Acute Code(s): A49.02 - METHICILLIN RESIS STAPH INFECTION, UNSP SITE SNOMED Code(s): 421712903 Plan: Abscess appears to be adequately drained. Continue IV antibiotics per in fectious disease recommendation. We'll follow up as needed
--- NOTE | 2022-03-28 17:33 | P.PN ---
Subjective Progress Note Date: 03/28/22 (delayed charting seen at 1015) Principal diagnosis: right underarm abscess Patient is a 21-year-old female with a history of asthma, pilonidal cyst, and IBS see who presented for direct admission from her primary care physician's office due to right axillary abscess. She had the abscess drained on 03/25 in the ER and was started on oral Clinda. However her condition continued to worsen and she therefore was admitted for IV antibiotics. Patient was started on vancomycin. Infectious disease and general surgery were consulted. Patient underwent operative I&D on 03/27. Patient seen and examined at bedside. She reports that her pain is fairly well controlled. She denies any nausea, vomiting, diarrhea. She is aware that we are awaiting cultures for definitive plan of care. All questions answered. General: nontoxic, no distress, appears at stated age Derm: warm, dry --Packing in place right axilla with mild amount of serous sanguinous soaked through Head: atraumatic, normocephalic, symmetric Eyes: EOMI, no lid lag, anicteric sclera Mouth: no lip lesion, mucus membranes moist Cardiovascular: S1S2 reg, no murmur, positive posterior tibial pulse bilateral, Lungs: CTA bilateral, no rhonchi, no rales , no accessory muscle use Abdominal: soft, nontender to palpation, no guarding, no appreciable organomegaly Ext: no gross muscle atrophy, no edema, no contractures Neuro: CN II-XI grossly intact, no focal neuro deficits Psych: Alert, oriented, appropriate affect Assessment/plan: Right axillary abscess failed outpatient treatment -Status post operative I&D on 03/27 -Continue with Vanco -Await final cultures -Wound care recs -Will need outpatient follow-up in the wound care clinic Irritable bowel syndrome-C -Continue with Linzess Anticipate home once final culture results available. Objective - Vital Signs Vital signs: Vital Signs Temp 97.5 F L 03/28/22 12:28 Pulse 62 03/28/22 12:28 Resp 16 03/28/22 12:28 BP 113/66 03/28/22 12:28 Pulse Ox 96 03/28/22 12:28 FiO2 Intake & Output 03/27/22 03/28/22 03/28/22 18:59 06:59 18:59 Intake Total 600 1550 960 Output Total 5 Balance 595 1550 960 Intake: IV 600 Intake, IV Titration 1550 Amount Sodium Chloride 0.9% 1, 1300 000 ml @ 130 mls/hr IV . Q7H42M [facility] Rx#:[id number] Vancomycin 1,500 mg In 250 Sodium Chloride 0.9% 250 ml @ 125 mls/hr IVPB Q8H [facility] Rx#:[id number] Oral 960 Output: Estimated Blood Loss 5 Other: Voiding Method Toilet Toilet Toilet # Voids 1 3 3 - Labs CBC & Chem 7: 03/28/22 09:43 03/28/22 09:43 Labs: Abnormal Lab Results - Last 24 Hours (Table) 03/28/22 Range/Units 09:43 Chloride 109 H (98-107) mmol/L Glucose 110 H (74-99) mg/dL Microbiology - Last 24 Hours (Table) 03/26/22 21:20 Gram Stain - Preliminary Axilla - Right Wound Culture - Preliminary Presumptive MRSA 03/27/22 17:18 Gram Stain - Preliminary Axilla - Right Wound Culture - Preliminary 03/26/22 22:48 Blood Culture - Preliminary Blood No Growth after 24 hours 03/27/22 17:18 Anaerobic Culture - Preliminary Axilla - Right
[2022-03-28] MEDS: ONDANSETRON 4 MG/2 ML VIAL IVP PRN (21:28)
[2022-03-28] MEDS: MIRTAZAPINE 15 MG TAB PO SCH (22:07)
[2022-03-29] MEDS: IBUPROFEN 400 MG TAB PO PRN ×2 (00:51→12:37)
[2022-03-29] MEDS: MORPHINE SULFATE 4 MG/ML SYRINGE IVP PRN ×2 (01:52→05:55)
[2022-03-29] MEDS: SODIUM CHLORIDE 0.9% 1,000 ML IV SCH ×2 (02:44→08:56)
[2022-03-29] MEDS: VANCOMYCIN 1,500 MG in SODIUM CHLORIDE 0.9% 250 ML IVPB SCH ×2 (02:44→11:36)
[2022-03-29 04:58] VITALS: BP 115/76; PULSE 77; RESP 16; TEMP 98.3
[2022-03-29] MEDS: PATIENT'S OWN (Linaclotide [Linzess] 145 MCG Capsule) PO SCH (08:40)
[2022-03-29] MEDS: FLUoxetine HCL 20 MG CAP PO SCH (08:40)
[2022-03-29] MEDS: HEPARIN SODIUM,PORCINE/PF 5,000 UNIT/0.5 ML SYRINGE SQ SCH (08:40)
--- NOTE | 2022-03-29 17:28 | P.DS ---
Providers Date of admission: 03/26/22 19:51 Expected date of discharge: 03/29/22 Attending physician: Cherry Barraza DO Consults: 03/26/22 21:31 Consult Physician Routine Consulting Provider: Donnell Stratton Consult Reason/Comments: R axillary abscess Do you want consulting provider notified?: Yes Consult Physician Routine Consulting Provider: Bree Garvin Consult Reason/Comments: R axillary abscess Do you want consulting provider notified?: Yes Primary care physician: [facility] Course: Discharge Diagnosis: MRSA abscess right axilla IBS-C Hospital Course: Patient is a 21-year-old female with a history of asthma, pilonidal cyst, and IBS see who presented for direct admission from her primary care physician's office due to right axillary abscess. She had the abscess drained on 03/25 in the ER and was started on oral Clinda. However her condition continued to worsen and she therefore was admitted for IV antibiotics. Patient was started on vancomycin. Infectious disease and general surgery were consulted. Patient underwent operative I&D on 03/27. She continued to do well and had packing placed. Her cultures came back with MRSA that was sensitive to Bactrim. She was determined stable for discharge home. Follow-up: We'll attempt to arrange home health care if able, we'll follow up in the wound care on 04/03/22, will complete a total of 14 days of Bactrim therapy. Patient seen and examined at bedside. Still having some pain but overall doing well. No nausea, vomiting, or diarrhea. Vital signs reviewed and stable. General: nontoxic, no distress, appears at stated age Derm: warm, dry,packing inplace right axilla with minimal soak through Head: atraumatic, normocephalic, symmetric Eyes: EOMI, no lid lag, anicteric sclera Mouth: no lip lesion, mucus membranes moist Cardiovascular: S1S2 reg, no murmur, positive posterior tibial pulse bilateral, Lungs: CTA bilateral, no rhonchi, no rales , no accessory muscle use Abdominal: soft, nontender to palpation, no guarding, no appreciable organomegaly Ext: no gross muscle atrophy, no edema, no contractures Neuro: CN II-XI grossly intact, no focal neuro deficits Psych: Alert, oriented, appropriate affect A total of 25 minutes of time were spent preparing this complex discharge summary. Patient was discharged on 03/29/22. Plan - Discharge Summary Discharge Rx Participant: Yes New Discharge Prescriptions: New Sulfamethox-Tmp 800-160Mg [Bactrim DS 800-160 mg] 1 tab PO Q12HR #14 tab Ibuprofen [Motrin] 400 mg PO Q6HR PRN tab PRN Reason: Mild Pain Or Fever > 100.5 HYDROcodone/APAP 5-325MG [[place] 5-325] 1 tab PO Q6HR PRN 3 Days #12 tab PRN Reason: Pain Continue Mirtazapine 30 mg PO HS Levonorgestrel/Ethin.Estradiol 0.15-0.03 1 tab PO DAILY Fluticasone Propionate 220 Mcg [Flovent 220 Mcg Inhaler] 1 puff INHALATION RT-BID PRN PRN Reason: Shortness Of Breath Linaclotide [Linzess] 145 mcg PO DAILY FLUoxetine HCL [PROzac] See Taper PO DIRECTED Cetirizine HCl 10 mg PO DAILY PRN PRN Reason: Allergy Symptoms Discontinued clindamycin HCL [Cleocin] 300 mg PO BID Acetaminophen-Codeine 300-30mg [Tylenol w/codeine #3] 1 tab PO TID PRN PRN Reason: Pain Discharge Medication List Cetirizine HCl 10 mg PO DAILY PRN 03/26/22 [History] FLUoxetine HCL [PROzac] See Taper PO DIRECTED 03/26/22 [History] Fluticasone Propionate 220 Mcg [Flovent 220 Mcg Inhaler] 1 puff INHALATION RT- BID PRN 03/26/22 [History] Levonorgestrel/Ethin.Estradiol 0.15-0.03 1 tab PO DAILY 03/26/22 [History] Linaclotide [Linzess] 145 mcg PO DAILY 03/26/22 [History] Mirtazapine 30 mg PO HS 03/26/22 [History] HYDROcodone/APAP 5-325MG [[place] 5-325] 1 tab PO Q6HR PRN 3 Days #12 tab 03/29/22 [Rx] Ibuprofen [Motrin] 400 mg PO Q6HR PRN tab 03/29/22 [Rx] Sulfamethox-Tmp 800-160Mg [Bactrim DS 800-160 mg] 1 tab PO Q12HR #14 tab 03/29/22 [Rx] Follow up Appointment(s)/Referral(s): Angie Wells MD [Primary Care Provider] - [facility] [NON-STAFF] - 04/03/22 9:15 am (Dr. Stratton on Saturday04/03/22 at the wound center) Patient Instructions/Handouts: Sulfamethoxazole/Trimethoprim (By mouth), Hydrocodone/Acetaminophen (By mouth), MRSA (Methicillin-Resistant Staphylococcus Aureus) (DC), Abscess (GEN) Activity/Diet/Wound Care/Special Instructions: Activity: as tolerated. May shower but do not submerge Diet: regular Wound Care: change packing daily-- Aquacel Silver to pack, cover with 4X 4 Discharge Disposition: HOME WITH HOME HEALTH SERVICES
[2022-03-30] MEDS ORDERED: VANCOMYCIN TROUGH DUE 1 EACH MISC MISCELLANE ONE (10:00)
--- NOTE | 2022-03-30 13:33 | P.PN ---
Subjective Progress Note Date: 03/29/22 Principal diagnosis: MRSA axilla 21-year-old female who is now status post formal incision and drainage of the right axillary abscess. A large abscess cavity was encountered at the time of the surgical section of drainage, deep specimen has been sent to the laboratory. Patient other than having some pain the site is doing relatively well. Will be having her breakfast in a moment. She has no fevers chills rigors or sweats and no other new complaints. Continues to have some discomfort at the area of the prior pilonidal cyst. 03/29/2022 improving, pain is better controlled. She is more awake alert and interactive and she's been. It is important for to going home. Objective - Vital Signs Vital signs: Vital Signs Temp 98.3 F 03/29/22 04:57 Pulse 77 03/29/22 04:57 Resp 16 03/29/22 04:57 BP 115/76 03/29/22 04:57 Pulse Ox 95 03/29/22 04:57 FiO2 Intake & Output 03/29/22 03/30/22 03/30/22 18:59 06:59 18:59 Other: Voiding Method Toilet - Exam HEENT: Anicteric conjunctiva are pink and moist Lungs: Good bilateral air entry without significant crackles or wheezing. Heart: Regular rate and rhythm with an audible S1-S2, no S3 no S4. There is no significant murmur click or rub, PMI was nondisplaced. Abdomen: Positive bowel sounds soft and nontender without palpable masses or organomegaly. There was no guarding or rebound. Extremities: The upper extremities have excellent pulses they are symmetric, no significant petechiae or telangiectasia. No splinter hemorrhages were noted. The lower extremities are free from significant edema. The peripheral pulses were 2+ and symmetric. The incision and drainage dressing is removed. The base of the wound is clean and intact without significant bleeding. There is a granulation tissue that is becoming visible. The surrounding edema is improved. There is no significant surrounding cellulitis. The severe tenderness is also improved at this time. There is no foul drainage on the dressing. Neuro: Awake alert oriented to person place and time. There are no acute new gross focal sensory motor deficits. - Labs CBC & Chem 7: 03/28/22 09:43 03/28/22 09:43 Labs: Microbiology - Last 24 Hours (Table) 03/26/22 22:48 Blood Culture - Preliminary Blood No Growth after 72 hours 03/27/22 17:18 Gram Stain - Preliminary Axilla - Right Wound Culture - Preliminary Presumptive MRSA 03/27/22 17:18 Anaerobic Culture - Preliminary Axilla - Right Assessment and Plan (1) Axillary abscess Narrative/Plan: 03/28/2022 the patient is now status post incision and drainage of the large right expiratory abscess. She is doing well this morning postoperative period cultures this point in time are pending over the outpatient culture did show evidence of the prior MRSA that is trimethoprim sulfamethoxazole susceptible. Once cultures available to determine her best course for outpatient therapy which likely will be oral. May need to have a home care consult for packing of this abscess cavity in the home setting. We discussed some maneuvers to help her with MRSA infection that include optimization of her nutritional status with zinc, BEC vitamins. We discussed that she can then do some skin decolonization and maneuvers to improve razor hygiene can also be performed. 21-year-old female who has a history of IBS C, depression and prior MRSA infection of her hand presents with a significant abscess to the right axillary area. She did have an incision and drainage performed in the emergency center is having ongoing difficulties at that site. Culture has now been obtained. Vancomycin therapy was recommended. Surgery will come by to see her to determine if she needs a more formal incision and drainage to that area. Pain control is excellent with the morphine sulfate and Tylenol that she has been given. Etiology of some recurrent difficulties remains concern at this point time given her youth. Routine workup will initiate this point in time HIV testing, CD4 cell count, and IgG levels will be obtained to further evaluate immune status at this time. She presented to be up-to-date with her vaccines Wound care will be further delineated once surgery has seen her in a week and have her follow-up in the wound healing center at her discharge. 03/29/2022 the patient is now improved status post incision and drainage. Her pain is under considerably better control. The site is evaluated repacked with the Aquacel silver rope dressing. She tolerated this extremely well. The patient's mother is present and she is instructed in how to repacked the wound. Her sister who is a nurse will likely be helping her in this process and we have asked for home care to help. For antibiotic therapy given that the culture has shown MRSA susceptible to trimethoprim sulfamethoxazole plan a 2 week course of Bactrim double strength one twice per day. She will follow-up in the wound center on Saturday to further evaluate the site. Her IgG and I G levels were low unclear if this is just from the acute infectiou s process. This will be rechecked. We discuss decolonization for staph which will be done once this site is improved. We will utilize Hibiclens showers at that time. Nutritional supplements with zinc as well as vitamins B E C been requested. Primary service is sending her home with a small supply of pain regulatory compliance specialist for dressing changes. Anti-inflammatories may be used also for pain control. Status: Acute Code(s): L02.419 - CUTANEOUS ABSCESS OF LIMB, UNSPECIFIED SNOMED Code(s): 56961991 (2) IBS (irritable bowel syndrome) Status: Acute Code(s): K58.9 - IRRITABLE BOWEL SYNDROME WITHOUT DIARRHEA SNOMED Code(s): 80883525 (3) Irritable bowel syndrome with predominant constipation Status: Acute Code(s): K58.1 - IRRITABLE BOWEL SYNDROME WITH CONSTIPATION SNOMED Code(s): 393981002 (4) MRSA (methicillin resistant Staphylococcus aureus) Status: Acute Code(s): A49.02 - METHICILLIN RESIS STAPH INFECTION, UNSP SITE SNOMED Code(s): 653042813
== END 2022-03-29 12:50 | disposition home health service (06) | DRG 603 ==
LOC: 5NMEDONC 19:51
PROVIDERS: ADMIT Internal Medicine; ATTEND Internal Medicine
PROC: 0X940ZZ Drainage of Right Axilla, Open Approach (ICD-10-PCS; principal; 2022-03-27 13:50)
DX: L02.411 Cutaneous abscess of right axilla (principal); B95.62 Methicillin resistant Staphylococcus aureus infection as the cause of diseases classified elsewhere; K58.1 Irritable bowel syndrome with constipation; F32.A Depression, unspecified; J45.909 Unspecified asthma, uncomplicated; Z86.14 Personal history of Methicillin resistant Staphylococcus aureus infection; Z79.899 Other long term (current) drug therapy; Z87.891 Personal history of nicotine dependence; Z86.19 Personal history of other infectious and parasitic diseases; Z88.8 Allergy status to other drugs, medicaments and biological substances; Z86.59 Personal history of other mental and behavioral disorders
CPT/HCPCS: 80048; 80053; 80202; 81025; 82784; 82785; 83605; 85025; 86360; 87040; 87070; 87075; 87077; 87186; 87205; 87390

== ENCOUNTER → 2022-05-01 | Outpatient (CLI) | payer BC ==
[2022-05-01 14:54] LABS: Immunoglobulin A 55.6 mg/dL (60.0-350.0)
[2022-05-02 10:09] LABS: Immunoglobulin E 6.86 IU/mL (0.00-114.00)
== END | disposition home or self-care (01) ==
LOC: LABWHC1 09:07
PROVIDERS: ATTEND Internal Medicine Infectious Disease
DX: D80.3 Selective deficiency of immunoglobulin G [IgG] subclasses (principal); L02.411 Cutaneous abscess of right axilla
CPT/HCPCS: 36415; 82784; 82785; 83036

== ENCOUNTER → 2022-05-02 | Outpatient (CLI) | payer BC ==
[2022-05-03 00:04] LABS: Immunoglobulin E 6.87 IU/mL (0.00-114.00)
[2022-05-03 13:08] LABS: Aureo. pullulans IgE <0.10 kU/L (<0.10); Aureo. pullulans IgE Class CLASS 0; Johnson Grass IgE Class CLASS 0; Rhizopus nigricans IgE <0.10 kU/L (<0.10); Rhizopus nigricans IgE Class CLASS 0; Timothy Grass IgE <0.10 kU/L (<0.10); Timothy Grass IgE Class CLASS 0
[2022-05-03 13:10] LABS: Epicoccum purpurascens Class CLASS 0; Epicoccum purpurascens IgE <0.10 kU/L (<0.10); Mucor racemosus IgE <0.10 kU/L (<0.10); Mucor racemosus IgE Class CLASS 0
[2022-05-03 13:11] LABS: Candida albicans IgE Class CLASS 0; S.rostrata/Helminth Class CLASS 0; S.rostrata/Helminth IgE <0.10 kU/L (<0.10)
[2022-05-03 13:12] LABS: Cottonwood IgE <0.10 kU/L (<0.10); English Plantain IgE Class CLASS 0; Lamb's Quarter IgE <0.10 kU/L (<0.10); Lamb's Quarter IgE Class CLASS 0; Sycamore(Mpl.Lf) IgE <0.10 kU/L (<0.10); Sycamore(Mpl.Lf) IgE Class CLASS 0; Walnut Tree IgE <0.10 kU/L (<0.10); Walnut Tree IgE Class CLASS 0; White Ash IgE Class CLASS 0
[2022-05-03 15:22] LABS: Alternaria alternata IgE <0.10 kU/L; Aspergillus fumagatus IgE <0.10 kU/L; Birch IgE <0.10 kU/L; Cat Epith & Dander IgE <0.10 kU/L; Cladosporian herbarum IgE <0.10 kU/L; Cockroach IgE <0.10 kU/L; Dermato. farinae IgE <0.10 kU/L; Dog Dander IgE <0.10 kU/L; Maple (Box Elder) IgE <0.10 kU/L; Oak IgE <0.10 kU/L; Ragweed,Common IgE <0.10 kU/L
== END | disposition home or self-care (01) ==
LOC: LABWHC1 15:25
PROVIDERS: ATTEND Otolaryngology
DX: J30.9 Allergic rhinitis, unspecified (principal)
CPT/HCPCS: 36415; 82785; 86001; 86003

== ENCOUNTER 2022-05-12 17:45 | Emergency (ER) | payer BC ==
--- NOTE | 2022-05-12 19:04 | ED ---
SOB HPI - General Chief Complaint: Shortness of Breath Stated Complaint: Chest pain,SOB,Fever Time Seen by Provider: 05/12/22 17:50 Source: patient Mode of arrival: ambulatory Limitations: no limitations - History of Present Illness Initial Comments: 21-year-old female presents emergency Department with fevers, cough, congestion and shortness of breath. Mother states that she has had a persisting cough since September. They're following with ENT. Yesterday had pulmonary function testing and an ALLERGY test. They told the patient that she failed her pulmonary testing and needed to see a blood bank booking clerk. States that she had an appointment for July however she is leaving for school next week and wanted a more thorough evaluation. She is currently on clindamycin through the ENT office. She tested negative for Covid. Does admit to productive sputum which is brown in color. Denies chest pain. Today the patient began having a fever of 102. Did take Tylenol just prior to hospital arrival. Denies concern for . No history of DVT or PE. No other alleviating, precipitating modifying factors - Related Data Home Medications Medication Instructions Recorded Confirmed Cetirizine HCl 10 mg PO DAILY PRN 03/26/22 03/26/22 FLUoxetine HCL [PROzac] See Taper PO DIRECTED 03/26/22 03/26/22 Fluticasone Propionate 220 Mcg 1 puff INHALATION RT-BID PRN 03/26/22 03/26/22 [Flovent 220 Mcg Inhaler] Levonorgestrel/Ethin.Estradiol 1 tab PO DAILY 03/26/22 03/26/22 0.15-0.03 Linaclotide [Linzess] 145 mcg PO DAILY 03/26/22 03/26/22 Mirtazapine 30 mg PO HS 03/26/22 03/26/22 Previous Rx's Medication Instructions Recorded HYDROcodone/APAP 5-325MG [Mobile 1 tab PO Q6HR PRN 3 Days #12 tab 03/29/22 5-325] Ibuprofen [Motrin] 400 mg PO Q6HR PRN tab 03/29/22 Sulfamethox-Tmp 800-160Mg [Bactrim 1 tab PO Q12HR #14 tab 03/29/22 DS 800-160 mg] Albuterol Inhaler [Ventolin Hfa 2 puff INHALATION RT-QID #8 gm 05/12/22 Inhaler] Benzonatate [Tessalon Perles] 100 mg PO TID PRN #15 capsule 05/12/22 Doxycycline Hyclate 100 mg PO BID 1 Days #20 tab 05/12/22 Allergies Allergy/AdvReac Type Severity Reaction Status Date / Time Milk Containing Products Allergy Severe Throat Verified 05/12/22 18:25 [Dairy] swelling, nausea citric acid [From Clenpiq] AdvReac Unknown Verified 05/12/22 18:25 magnesium oxide AdvReac Unknown Verified 05/12/22 18:25 [From Clenpiq] sodium picosulfate AdvReac Unknown Verified 05/12/22 18:25 [From Clenpiq] Review of Systems ROS Statement: Those systems with pertinent positive or pertinent negative responses have been documented in the HPI. ROS Other: All systems not noted in ROS Statement are negative. 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 Colonoscopy 2 years ago Past Anesthesia/Blood Transfusion Reactions: No Reported Reaction Past Psychological History: No Psychological Hx Reported Smoking Status: Never smoker Past Alcohol Use History: Rare Past Drug Use History: None Reported - Past Family History Sister(s) Family Medical History: Vascular Disorder Additional Family Medical History / Comment(s): connective tissue and vascular malformations Father Family Medical History: Hypertension Mother Additional Family Medical History / Comment(s): left knee ligament issues General Exam Limitations: no limitations General appearance: alert, in no apparent distress Head exam: Present: atraumatic, normocephalic, normal inspection Eye exam: Present: normal appearance, PERRL, EOMI. Absent: scleral icterus, conjunctival injection, periorbital swelling ENT exam: Present: normal exam, mucous membranes moist Neck exam: Present: normal inspection. Absent: tenderness, meningismus, lymphadenopathy Respiratory exam: Present: normal lung sounds bilaterally. Absent: respiratory distress, wheezes, rales, rhonchi, stridor Cardiovascular Exam: Present: regular rate, normal rhythm, normal heart sounds. Absent: systolic murmur, diastolic murmur, rubs, gallop, clicks GI/Abdominal exam: Present: soft, normal bowel sounds. Absent: distended, tenderness, guarding, rebound, rigid Extremities exam: Present: normal inspection, full ROM, normal capillary refill. Absent: tenderness, pedal edema, joint swelling, calf tenderness Back exam: Present: normal inspection Neurological exam: Present: alert, oriented X3, CN II-XII intact Psychiatric exam: Present: normal affect, normal mood Skin exam: Present: warm, dry, intact, normal color. Absent: rash Course Vital Signs 05/12/22 05/12/22 05/12/22 17:46 18:51 20:36 Temperature 98.4 F 100.1 F H Pulse Rate 98 86 Respiratory 20 20 18 Rate Blood Pressure 92/66 117/75 O2 Sat by Pulse 98 97 Oximetry 05/12/22 05/12/22 20:47 20:55 Temperature Pulse Rate 88 86 Respiratory Rate Blood Pressure O2 Sat by Pulse Oximetry Medical Decision Making - Medical Decision Making Upon arrival patient was placed into room 18. A thorough history and physical exam was performed. IV access was established laboratory studies are conducted. Patient does go for a CT of her chest as this was recommended by the ENT specialist. Demonstrates multilobar airspace opacities concerning for acute infectious process. Patient was given a dose of Rocephin and is discharged home on doxycycline, Tessalon Perles and an inhaler. Instructed to use the medications as directed. He is to follow-up with her primary care doctor in 2-4 days. Needs repeat x-ray in 6 weeks to ensure improvement. Return for any new or worsening symptoms. Patient was discharged home in stable condition - Lab Data Result diagrams: 05/12/22 19:04 05/12/22 19:04 Lab Results 05/12/22 05/12/22 05/12/22 Range/Units 19:04 19:04 19:04 WBC 9.2 (4.0-11.0) k/uL RBC 4.44 (3.80-5.40) m/uL Hgb 13.1 (11.4-16.0) gm/dL Hct 39.2 (34.0-46.0) % MCV 88.5 (80.0-100.0) fL MCH 29.6 (25.0-35.0) pg MCHC 33.4 (31.0-37.0) g/dL RDW 11.8 (11.5-15.5) % Plt Count 339 (150-450) k/uL MPV 7.3 Neutrophils % 79 % Lymphocytes % 13 % Monocytes % 6 % Eosinophils % 1 % Basophils % 0 % Neutrophils # 7.3 (1.3-7.7) k/uL Lymphocytes # 1.2 (1.0-4.8) k/uL Monocytes # 0.6 (0-1.0) k/uL Eosinophils # 0.0 (0-0.7) k/uL Basophils # 0.0 (0-0.2) k/uL PT 11.7 (9.0-12.0) sec INR 1.1 (<1.2) APTT 27.6 (22.0-30.0) sec Sodium 136 L (137-145) mmol/L Potassium 3.5 (3.5-5.1) mmol/L Chloride 101 (98-107) mmol/L Carbon Dioxide 22 (22-30) mmol/L Anion Gap 13 mmol/L BUN 8 (7-17) mg/dL Creatinine 0.60 (0.52-1.04) mg/dL Est GFR (CKD-EPI)AfAm >90 (>60 ml/min/1.73 sqM) Est GFR (CKD-EPI)NonAf >90 (>60 ml/min/1.73 sqM) Glucose 104 H (74-99) mg/dL Calcium 9.3 (8.4-10.2) mg/dL Total Bilirubin 0.8 (0.2-1.3) mg/dL AST 20 (14-36) U/L ALT 12 (4-34) U/L Alkaline Phosphatase 66 (38-126) U/L Troponin I (0.000-0.034) ng/mL Total Protein 6.6 (6.3-8.2) g/dL Albumin 4.1 (3.5-5.0) g/dL Urine Color Urine Appearance (Clear) Urine pH (5.0-8.0) Ur Specific [place] (1.001-1.035) Urine Protein (Negative) Urine Glucose (UA) (Negative) Urine Ketones (Negative) Urine Blood (Negative) Urine Nitrite (Negative) Urine Bilirubin (Negative) Urine Urobilinogen (<2.0) mg/dL Ur Leukocyte Esterase (Negative) Urine HCG, Qual (Not Detectd) 05/12/22 05/12/22 05/12/22 Range/Units 19:04 19:04 19:04 WBC (4.0-11.0) k/uL RBC (3.80-5.40) m/uL Hgb (11.4-16.0) gm/dL Hct (34.0-46.0) % MCV (80.0-100.0) fL MCH (25.0-35.0) pg MCHC (31.0-37.0) g/dL RDW (11.5-15.5) % Plt Count (150-450) k/uL MPV Neutrophils % % Lymphocytes % % Monocytes % % Eosinophils % % Basophils % % Neutrophils # (1.3-7.7) k/uL Lymphocytes # (1.0-4.8) k/uL Monocytes # (0-1.0) k/uL Eosinophils # (0-0.7) k/uL Basophils # (0-0.2) k/uL PT (9.0-12.0) sec INR (<1.2) APTT (22.0-30.0) sec Sodium (137-145) mmol/L Potassium (3.5-5.1) mmol/L Chloride (98-107) mmol/L Carbon Dioxide (22-30) mmol/L Anion Gap mmol/L BUN (7-17) mg/dL Creatinine (0.52-1.04) mg/dL Est GFR (CKD-EPI)AfAm (>60 ml/min/1.73 sqM) Est GFR (CKD-EPI)NonAf (>60 ml/min/1.73 sqM) Glucose (74-99) mg/dL Calcium (8.4-10.2) mg/dL Total Bilirubin (0.2-1.3) mg/dL AST (14-36) U/L ALT (4-34) U/L Alkaline Phosphatase (38-126) U/L Troponin I <0.012 (0.000-0.034) ng/mL Total Protein (6.3-8.2) g/dL Albumin (3.5-5.0) g/dL Urine Color Colorless Urine Appearance Clear (Clear) Urine pH 7.0 (5.0-8.0) Ur Specific [place] 1.004 (1.001-1.035) Urine Protein Negative (Negative) Urine Glucose (UA) Negative (Negative) Urine Ketones Negative (Negative) Urine Blood Negative (Negative) Urine Nitrite Negative (Negative) Urine Bilirubin Negative (Negative) Urine Urobilinogen <2.0 (<2.0) mg/dL Ur Leukocyte Esterase Negative (Negative) Urine HCG, Qual Not Detected (Not Detectd) - EKG Data EKG Comments: EKG demonstrates sinus rhythm with a rate of 88. MA interval 118. QRS 108. QTC of 41. No acute ST segment elevations or depressions concerning for ischemic changes. No signs of Qwbio-Htssqppds-Draoa or Brugada. Disposition Clinical Impression: Pneumonia, Pyrexia Disposition: HOME SELF-CARE Condition: Stable Instructions (If sedation given, give patient instructions): Community Acquired Pneumonia (ED) Additional Instructions: Please take the antibiotics and cough medicine as directed. Use the inhaler every 4 hours. Follow-up with your primary care doctor in 2-4 days and return for any new or worsening symptoms. You will need a repeat x-ray done in 6 weeks to demonstrate that your lungs have improved Prescriptions: Doxycycline Hyclate 100 mg PO BID 1 Days #20 tab Benzonatate [Tessalon Perles] 100 mg PO TID PRN #15 capsule PRN Reason: Cough Albuterol Inhaler [Ventolin Hfa Inhaler] 2 puff INHALATION RT-QID #8 gm Is patient prescribed a controlled substance at d/c from ED?: No Referrals: Angie Wells MD [Primary Care Provider] - 1-2 days Time of Disposition: 20:48
[2022-05-12 19:22] LABS: Basophils % (A) 0 %; Eosinophils % (A) 1 %; HCT 39.2 % (34.0-46.0); HGB 13.1 gm/dL (11.4-16.0); Lymphocytes # (A) 1.2 k/uL (1.0-4.8); Lymphocytes % (A) 13 %; MCH 29.6 pg (25.0-35.0); MCHC 33.4 g/dL (31.0-37.0); MCV 88.5 fL (80.0-100.0); Mean Platelet Volume 7.3; Monocytes # (A) 0.6 k/uL (0-1.0); Monocytes % (A) 6 %; Neutrophils # (A) 7.3 k/uL (1.3-7.7); Neutrophils % (A) 79 %; Platelet Count 339 k/uL (150-450); RBC 4.44 m/uL (3.80-5.40); RDW 11.8 % (11.5-15.5); WBC 9.2 k/uL (4.0-11.0)
[2022-05-12 19:23] LABS: Appearance,Urine Clear (Clear); Bilirubin,Urine Negative (Negative); Blood,Urine Negative (Negative); Color,Urine Colorless; Glucose,Urine (UA) Negative (Negative); Ketones,Urine Negative (Negative); Leukocyte Esterase,Urine Negative (Negative); Nitrite,Urine Negative (Negative); Protein,Urine Negative (Negative); Specific Gravity,Urine 1.004 (1.001-1.035); Urobilinogen,Urine <2.0 mg/dL (<2.0)
[2022-05-12 19:34] LABS: ALT 12 U/L (4-34); AST 20 U/L (14-36); African American GFR (CKD) >90 (>60 ml/min/1.73 sqM); Albumin 4.1 g/dL (3.5-5.0); Alkaline Phosphatase 66 U/L (38-126); Anion Gap 13 mmol/L; Blood Urea Nitrogen 8 mg/dL (7-17); Calcium 9.3 mg/dL (8.4-10.2); Carbon Dioxide 22 mmol/L (22-30); Chloride 101 mmol/L (98-107); Glucose 104 mg/dL (74-99); INR 1.1 (<1.2); Non-African American GFR(CKD) >90 (>60 ml/min/1.73 sqM); Partial Thromboplastin Time 27.6 sec (22.0-30.0); Potassium 3.5 mmol/L (3.5-5.1); Prothrombin Time 11.7 sec (9.0-12.0); Sodium 136 mmol/L (137-145); Total Bilirubin 0.8 mg/dL (0.2-1.3); Total Protein 6.6 g/dL (6.3-8.2)
--- NOTE | 2022-05-12 19:52 | CT ---
EXAMINATION TYPE: CT chest angio for PE CT DLP: 281.3 mGycm, Automated exposure control for dose reduction was used. DATE OF EXAM: 05/12/2022 7:44 PM COMPARISON: Chest x-ray 11/18/2019 CLINICAL INDICATION:Female, 21 years old with history of elevated d-dimer; cough, chest pain TECHNIQUE/CONTRAST: CTA scan of the thorax is performed with IV Contrast, patient injected with 100 mL of Isovue 370, pul monary embolism protocol. MIP images are created and reviewed. FINDINGS: Pulmonary Artery: There is no evidence for a filling defect within the pulmonary vasculature to sugge st acute pulmonary embolism. The pulmonary artery is of normal size. Lungs/Pleura: Multifocal, multilobar patchy airspace consolidations examples of which include: left l ower lobe (series 404, image 99, anterior left upper lobe (series 406, image 85), right lower lobe (s eries 406, image 87) and right upper lobe (series 406, image 66). Airway: Large airways are patent. Heart: Heart is within normal limits for size.. Vasculature: No evidence of aortic aneurysm. Mediastinum: Prominent aortopulmonary lymph nodes (series 401, image 65). No suspicious axillary or p erihilar adenopathy. Musculoskeletal: No acute osseous abnormalities Soft Tissues: Unremarkable. Lower neck: No significant findings. Upper Abdomen: No significant findings. IMPRESSION: 1. No evidence of pulmonary embolism. 2. Multilobar airspace opacities concerning for acute infectious process such as multifocal pneumonia .
[2022-05-12] MEDS ORDERED: IPRATROPIUM-ALBUTEROL 3 ML NEB INHALATION STA (20:27)
[2022-05-12] MEDS ORDERED: cefTRIAXone IN SWFI 1,000 MG/10 ML SYRINGE IVP STA (20:27)
[2022-05-12 20:37] VITALS: BP 117/75; RESP 18; TEMP 100.1
[2022-05-12] MEDS ORDERED: ACETAMINOPHEN TAB 325 MG TAB PO STA (20:43)
[2022-05-12 21:04] VITALS: PULSE 86
== END 2022-05-12 20:57 | disposition home or self-care (01) ==
LOC: EC 17:45
DX: J18.9 Pneumonia, unspecified organism (principal); R50.9 Fever, unspecified; J45.909 Unspecified asthma, uncomplicated; Z91.011 Allergy to milk products; Z88.8 Allergy status to other drugs, medicaments and biological substances
CPT/HCPCS: 36415; 94640; 93005; 80053; 84484; 85025; 85610; 85730; 81003; 81025; 71275; 99285; 96374; J0696; Q9967; 86738